=== PATIENT | female | born 1955 | race Caucasian/White ===

== ENCOUNTER 2025-03-28 09:30 | Day surgery (SDC) | payer MEDICARE, BC, SELFPAY ==
--- NOTE | 2025-03-17 13:23 | PM.GYNHP.1 ---
History of Present Illness History of Present Illness Narrative: Milad Ji is a 69 year old female Date of procedure:?? March 28, 2025 Preoperative diagnosis:? Stage III uterine prolapse Mild rectocele and cystocele that appear to be cuff dependent. Likely surgery will not be needed for these 2 Planned Procedure:?? Vaginal hysterectomy, uterosacral ligament vaginal vault suspension, possible Post repair cystoscopy patient lives in [place], will stay overnight, go home the next morning. Postop Meds Tylenol 1000 mg, ?3 times a day? Motrin 400 mg (over age 65 yr) , 3 times a day Oycodone 5 mg,? take 1 pill every 4-6 hr as needed, # 15? Colace,? 1 pill BID, for constipation CC: Cervix falling out HPI: 69-year-old female who presents for evaluation of above complaint.?? She reports onset of symptoms years ago.?? She considers this a? Moderate? problem. She has 2 issues 1. Prolapse She reports prolapse of her uterus with her cervix falling out, often to the introitus, sometimes coming beyond the introitus. She has symptoms of bulge and pressure, it interferes with sex. She is considering surgery versus another pessary. She has been using a size 3 Ring pessary for the last 1-2 years. But she stopped because it keeps falling out. No urinary symptoms. No bowel symptoms. He reports that 35 years ago she had her ?bladder anchored up ?. 2. Vulvar lichen sclerosus and vaginal atrophy She has vulvar and vaginal skin issues that also impair her quality of life. She has been using clobetasol to the vulvar skin, and Estrace cream to the vaginal epithelium. She needs refills for both of these. 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 So needs a larger tube. The skin discomfort also impairs sexual function so we talked about using lidocaine ointment. She would like to try this. prior hyst -no -x2 c-sec -0 Pelvic Floor Review of Systems: (HPI) Stress Urinary Incontinence symptoms (CUBA): No Triggers include:? Urge Incontinence symptoms (Urge UI): Occasional Triggers include: Full bladder with urge ? Pads: She wears 1 mini pad a day Overactive Bladder symptoms (OAB):? ? Frequency:?? Every 3-4 hour Nocturia:?? Times 1-2 Urgency:?? Mild Prior incontinence treatment includes:? Medical:? No Surgical:? No? Kegels:?? Yes Physical therapy:?No? Pessary: No, not for incontinence, yes for prolapse Diet / Fluids: Fluid restriction:? No Excessive fluids:?No Pain symptoms:? Painful bladder:???No Dysuria:??? No Dyspareunia:? Yes Dysmenorrhea:? No Urinary Risk Factors UTI?s, recurrent:? No Hematuria:? No Kidney Stones:?No? Tobacco use:? No Pelvic Organ Prolapse (POP) symptoms:?? Bulge:?Yes Pressure and /or? Heaviness:?No Splint for defecation or voiding:???No Voiding dysfunction: Abnormal stream:? No Strain to void:? No Incomplete emptying:?No Voiding difficulty:? No Retention:??? No Bowel Function: Constipation:?No Strain to defecate:?No Fiber:?No Laxatives:?No Fecal Incontinence:? Liquid stool:? No Solid stool:?No?? Sexual function Sexually active:? No, wants to be Incontinence with sex:? No ? UroGyn ROS ROS Narrative ROS Narrative: General Review of Systems: Constitutional, CV, Endo, Musc-skel, Eyes, Cancer, Skin, Breast, GI, Heme/Lymph, Psych, Urinary, Neuro, Wound Care Technician, Resp, Sexual:??? Pertinent positives listed above in HPI All others reviewed and negative. All reviewed on patient questionnaire.? . . PFSH Allergies fluconazole (From Diflucan) Allergy ASPIRIN Allergy (Mild, Uncoded 02/02/25 08:15) DICLOFENAC Allergy (Mild, Uncoded 02/02/25 08:15) From BUSPAR Allergy (Mild, Uncoded 02/02/25 08:15) Medications CALCIPOTRIENE (DOVONEX) 0.005 TP PRN ##0 04/22/12 [History Confirmed 02/02/25] atenolol 25 mg tablet 25 mg PO QDAY ##0 04/22/12 [History Confirmed 02/02/25] alprazolam 0.5 mg tablet,extended release 24 hr (Xanax XR) 0.5 mg PO DAILY 02/02/25 [History Confirmed 02/02/25] clobetasol 0.05 % topical ointment 1 applic topical DAILY Vulvar lichen sclerosus, oral lichen planus #60 grams 02/02/25 [Rx Confirmed 02/02/25] estradiol 0.01% (0.1 mg/gram) vaginal cream (Estrace) 1 g vaginal 3XW #42.5 grams 02/02/25 [Rx Confirmed 02/02/25] lidocaine 5 % topical ointment 1 applic topical BID PRN pain #50 grams 02/02/25 [Rx Confirmed 02/02/25] Medical History Rectocele Hypertension anxiety Surgical History Anesthesia Status post revision of total knee (~2015) History of knee replacement (~2010) Exam Height 5 ft 1 in Weight 168 lb 5 oz BMI 31.8 BP 165/103 H Blood Pressure Location Lt radial Position Sitting Pulse 61 Pulse Source Monitor Temp 97 F L Temp Source Temporal Artery Scan Pulse Oximetry (%) 96 Oxygen Delivery Method room air General: healthy, alert, coherent, no acute distress, cooperative, nontoxic Pulmonary: normal breathing, no distress Abdomen: soft, no mass, non-distended, no hernia, non-tender Skin: Scars on Abd: scope Vulva: There is severe lichen sclerosus with pale skin and small areas of focal redness. Indicating severe inflammation The labia minora are fused over the clitoris. But the vagina and urethra are not covered Otherwise, Normal labia majora, introitus, tender Urethra meatus: normal, no discharge Perineum: Normal, non-tender Urethra: No mass, non-tender Bladder: no mass, non-tender Vagina: No lesions, no discharge, mild vaginal atrophy, non-tender Prolapse stage III cervix, also with stage II anterior and posterior prolapse. However these appear to be cuff dependent Levators: Non-tender, Cervix: Normal appearance, No lesions, no discharge, non-tender Uterus: Normal normal size, non-tender Bimanual: no mass, no adnexal mass, non-tender Anus: No lesion, non-tender, no hemorrhoid Empty Cough Stress test: Neg PVR: Not done, concern for pain Urethral angle hypermobile: Yes POP-Q Exam: Aa: -1 Ba: -1 Ap: -1 Bp: -1 C: +2 D: -5 TVL: 8 GH: 3 PB: To Introitus size: 2 fingerbreadths Cystocele stage: 2-a Rectocele stage: 2-a Uterine/Vault Prolapse Stage: 3 Assessment & Plan (1) Uterovaginal prolapse, incomplete: Status: Acute (2) Vaginal atrophy: Status: Acute (3) Lichen sclerosus et atrophicus of the vulva: Status: Acute (4) Rectocele: Assessment and Plan ? Patient counseled regarding above conditions.? Educational materials given to patient. 1. Pelvic Organ Prolapse - Stage 3, uterus, rectocele This diagnosis and its etiology was discussed with the patient.? Treatment options were discussed including: expectant management, pessary trial, and surgical intervention. We briefly discussed risks and benefits of surgery. All surgery for prolapse is not 100% successful and there is a chance of recurrence or failure. already tried and failed Pessary she desires surgery my recommendation = TVH, USVS, ? post repair, cystoscopy see below for counseling 2. For the vaginal atrophy and the vulvar atrophy, ordered Vaginal estrogen to be used 3 times a week, 1 g, use indefinitely Clobetasol cream applied a vulvar skin once or twice a day as needed, also applied to the mouth as needed, for the lichen planus. Okay to use indefinitely Lidocaine ointment, 5%, use to help with sexual function or vulvar pain, as needed. Okay to use indefinitely Surgical Counselling Note Patient seen for surgical counselling.? She desires surgical repair. Please see? H & P for exam and discussion. Date of procedure:?? March 28, 2025 Preoperative diagnosis:? Stage III uterine prolapse Mild rectocele and cystocele that appear to be cuff dependent. Likely surgery will not be needed for these 2 Planned Procedure:?? Vaginal hysterectomy, uterosacral ligament vaginal vault suspension, possible Post repair cystoscopy patient lives in [place], will stay overnight, go home the next morning. Postop Meds Tylenol 1000 mg, ?3 times a day? Motrin 400 mg (over age 65 yr) , 3 times a day Oycodone 5 mg,? take 1 pill every 4-6 hr as needed, # 15? Colace,? 1 pill BID, for constipation Patient counseled extensively about the Risks, Benefits, and Alternatives to surgery.? She was offered the opportunity to ask any questions, and all questions were answered. ? Surgical Risks include: Bleeding, Hemorrhage, Transfusion, Infection (especially wound or bladder), Injury to adjacent organs (especially bladder, ureter, bowel, blood vessels, nerves), Postop or Chronic Pain, need for Reoperation, and Life-threatening event (especially M.I., CVA, PE, DVT). Procedure Risks include: Failure to Cure condition, Recurrence of condition months or years later, Urinary incontinence, Voiding dysfunction or Urinary Retention with prolonged catheter use, Poor wound healing, Erosions of any mesh or graft used, Dyspareunia, Vaginal scarring or narrowing, Need for additional surgery (immediate or delayed).? The expected cure and improvement and failure rates were discussed. Patient counseled to avoid the following for 6 weeks after surgery: (1) Impact sports (like running or jumping), walking and stairs OK (2) Lifting over 20# (3) Sexual intercourse No limits after 6 weeks. ? Good exercise tolerance, > 4 Mets. Her current medications were reviewed, and instructions given over which to use and which to discontinue before surgery.? Post-operative care instructions reviewed.? We discussed post-operative pain: Pain should be in the mild-moderate range, but can be moderate-severe for the first few days.?? Prescriptions will typically be given for (1) acetaminophen (Tylenol) and (2) non-steroidal anti-inflammatory drug (NSAID, like Motrin or Naprosyn), use both together, around the clock. Prescription will also be given for a (3) narcotic pain medication. Use the narcotic as needed, as a booster to the Tylenol and NSAID. You might need 0-4 narcotic pills a day typically. The narcotic will only be needed for a few days.?? Gradually use less of the narcotic, but continue the Tylenol and NSAID.? After a few days, the narcotic should no longer be needed, and only the Tylenol and NSAID will be needed.? Warm packs or cold packs can also be used for pain.??Do not drive for as long as you are using the narcotic pain medication? - this should only be a few days.?? Constipation is associated with use of narcotic pain medications, and can be improved with use of a stool softener, or fiber, or a mild laxative.? If you are sent home from the hospital with a Peterson Catheter in place:? please call the office on the day after surgery We will usually remove the catheter 2-4 days after surgery: a. You will perform an at home Peterson catheter removal -or- b. You will come in to the office for a voiding trial, (For some unusual surgeries, we might leave the catheter in for up to 2 weeks, and then remove it.) Instructions for at home Peterson catheter removal..... For at-home Peterson catheter removal, this can be done on postop day 2 or 3 or 4, depending on various factors. 1. At 6 or 7 a.m., have the patient cut the Peterson catheter with scissors, while standing in a shower or bath tub. a. Cut the catheter right in the middle of the tubing, about 6 inches from the body. b. The sterile water that is inside the Peterson balloon will leak all over the floor of the shower or bath tub. This is expected. c. The catheter will either fall out of the urethra, or just gently pull on it and it will come out. 2. Now, the bladder will gradually fill up over the next few hours. 3. Go ahead and empty the bladder when you feel an urge to void. Please note how strong the urine stream is. a. If the urine stream is normal or close to normal, then everything is good to go. b. If the urine stream is slow or you can not void, then return to the clinic in the afternoon. We will place another Peterson catheter. We will repeat the voiding trial in 3-4 days. All of her questions were answered Marshal Paz MD UroGynecology & Pelvic Reconstructive Surgery [facility] Medical History (Updated 03/07/25 @ 13:21 by Jazmin Hung MD) Rectocele Hypertension Surgical History (Updated 10/18/20 @ 22:05 by Lizzy Oropeza) Anesthesia Status post revision of total knee (~2015) History of knee replacement (~2010) Meds Home Medications and Allergies Home Medications ?Medication ?Instructions ?Recorded ?Confirmed ?Type CALCIPOTRIENE (DOVONEX) 0.005 TP PRN ##0 04/22/12 02/02/25 History atenolol 25 mg tablet 25 mg PO QDAY ##0 04/22/12 02/02/25 History alprazolam 0.5 mg tablet,extended 0.5 mg PO DAILY 02/02/25 02/02/25 History release 24 hr (Xanax XR) clobetasol 0.05 % topical ointment 1 applic topical DAILY Vulvar 02/02/25 02/02/25 Rx lichen sclerosus, oral lichen planus #60 grams estradiol 0.01% (0.1 mg/gram) 1 g vaginal 3XW #42.5 grams 02/02/25 02/02/25 Rx vaginal cream (Estrace) lidocaine 5 % topical ointment 1 applic topical BID PRN pain #50 02/02/25 02/02/25 Rx grams oxycodone 5 mg tablet 5 mg PO Q8H PRN pain #10 tabs 03/15/25 03/15/25 Rx Allergies Allergy/AdvReac Type Severity Reaction Status Date / Time fluconazole (From Diflucan) Allergy Unknown Verified 02/02/25 08:15 ASPIRIN Allergy Mild Uncoded 02/02/25 08:15 DICLOFENAC Allergy Mild Uncoded 02/02/25 08:15 From BUSPAR Allergy Mild Uncoded 02/02/25 08:15 Assessment & Plan Time-Based Coding :: [TOTAL MINUTES] spent with patient and on the chart (including review of chart, obtaining history, exam, reviewing outside data, placing orders, documenting exam and treatment plan, and counseling patient) on [DATE].
[2025-03-22 13:34] VITALS: BMI 31.7
[2025-03-28] VITALS (15 sets, daily range): BP systolic 100–161; BP diastolic 53–93; PULSE 64–80; RESP 15–90; TEMP 35.9–37.2; O2SAT 6–97; BMI 31.7
--- NOTE | 2025-03-28 | PATH_ITS ---
[facility] Accession Number: [id number] No. of containers..01 Tissue . 01 Material submitted: . uterus - UTERUS AND CERVIX . 01 Diagnosis: UTERUS AND CERVIX, VAGINAL HYSTERECTOMY (WEIGHT 68 GRAMS): Cervix with patchy atypia and parakeratosis suggestive of prolapse; negative for definite dysplasia. Endocervix with no significant abnormality. Endometrium with features of cystic atrophy and a benign endometrial polyp (12 mm); negative for endometrioid intraepithelial neoplasia or malignancy. Myometrium with a benign submucosal leiomyoma (5 mm). Uterine serosa with a benign, calcified subserosal leiomyoma (22 mm in greatest dimension). [facility] 04/07/2025 1527 Local . 01 Electronically signed: . Melany Vallecillo MD, Pathologist NPI- [id number] . 01 Gross description: . Received in formalin with two identifiers and uterus and cervix is an intact uterus (68 grams, 10.2 cm superior to inferior, 4.4 cm medial to lateral, 3.3 cm anterior to posterior) with attached cervix (3.4 x 3.2 cm), with no additional adnexa. . The ectocervix is carolina and wrinkled with a circular os, 0.4 cm in diameter. The serosa is slightly ragged with a well-circumscribed firm nodule measuring 2.2 x 2.4 x 1.9 cm. The serosal reflection is ragged and irregular, so orientation is approximate. The presumed anterior margin is inked blue while the presumed posterior margin is inked black. . The endocervical canal has carolina herringbone mucosa and measures 2.3 cm in length. The endometrial cavity measures 1.9 cm from cornu to cornu and 4.1 cm in length with pink-carolina, velvety endometrium that averages 0.1 cm thick. A pink-carolina soft polypoid nodule measures 1.2 x 0.7 x 0.5 cm along with a white rubbery submucosal nodule, 0.5 x 0.4 x 0.3 cm. The myometrium is carolina and trabecular measuring up to 1.3 cm thick with the aforementioned subserosal nodule and no additional lesions identified. The subserosal nodule has a carolina, gritty cut surface consistent with calcification. . Link Trainer Maintenance Worker sections are submitted as follows: A1: Anterior cervix. A2: Posterior cervix. A3: Anterior full thickness section. A4: Posterior full thickness section and submucosal nodule. A5: Calcified nodule following brief decalcification. ([id number]) /MRV 03/30/2025 171 Local . 01 Pathologist provided ICD-10: N81.2, N81.6 . 01 CPT . 606882 Specimen Comment: A courtesy copy of this report has been sent to [facility] Pathology Performed at: [address] [address], [place], [place] [id number] MD Anthony Shelton MD Phone: [phone]
--- NOTE | 2025-03-28 06:00 | EKG_ITS ---
[address] [address] Test Date: 2025-03-28 Pat Name: Milad Ji Department: [facility] Room: Gender: Female Teacher Of The Visually Impaired: KELVIN : 1955 Requested By: Order Number: [id number] Reading MD: Zeeshan Padron MD Measurements Intervals [place] Rate: 79 P: 9 NC: 180 QRS: 9 QRSD: 80 T: 24 QT: 360 QTc: 412 Interpretive Statements Normal sinus rhythm Nonspecific T wave abnormality Electronically Signed On 03-28-2025 15:07:29 PDT by Zeeshan Padron MD
[2025-03-28] MEDS: LACTATED RINGERS 1,000 ML 42 ML IV ×3 (09:57→15:52)
[2025-03-28] MEDS: GABAPENTIN 300 MG CAPSULE PO ×2 (09:57→10:00)
[2025-03-28] MEDS: PHENAZOPYRIDINE 100 MG TABLET 200 MG PO (09:59)
[2025-03-28] MEDS: ACETAMINOPHEN 325 MG TABLET 975 MG PO ×3 (10:00→22:37)
[2025-03-28 10:13] LABS: Hematocrit 46.8 % (36-46); Hemoglobin 16.1 g/dL (12.0-16.0); Mean Corpuscular HGB Conc 34.3 % (30-36); Mean Corpuscular Hemoglobin 31.2 PG (26-34); Mean Corpuscular Volume 91.0 fL (80-100); Platelet Count 161 X10^3/uL (150-400)
[2025-03-28 10:25] LABS: Blood Urea Nitrogen 13 mg/dL (7-17); Calcium 9.2 mg/dL (8.4-10.2); Carbon Dioxide 25 mmol/L (22-32); Chloride 101 mmol/L (98-107); Estimated Glomerular Filt Rate > 60 mL/min (>60); Glucose 98 mg/dL (70-99); HEMOLYSIS < 15 (0-50); Potassium 4.8 mmol/L (3.4-5.1); Sodium 136 mmol/L (137-145)
--- NOTE | 2025-03-28 11:45 | PM.PREOP ---
Pre-operative Note Interval Note History & Physical reviewed/Exam performed by Physician: Yes Changes to H&P: No
--- NOTE | 2025-03-28 12:33 | SUR.OPER ---
Lithotomy on padded OR bed, head on pillow, arms secured on padded arm boards at <90 degrees abduction. Legs secured in padded yellow fins stirrups. Safety strap across abdomen.
[2025-03-28] MEDS: LIDOCAINE 1% W/EPI 10ML 20 ML INJ (12:39)
--- NOTE | 2025-03-28 14:16 | P.OP_ITS ---
Operative Date/Time/Diagnoses Date of procedure: 03/28/25 Time of procedure: 12:45 Pre-op diagnosis: uterine prolapse Post-op diagnosis: other (uterine prolapse, mild cystocele) Procedure & Clinicians Procedure: Procedures Operation Date: 03/28/25 11:15 Actual Procedure Side Surgeon p Total Vaginal Hysterectomy, ureterosacral vault suspension, vaginal revision (CPT 55221) Not Applicable Marshal Paz MD Operative Notes Findings: Operative Note Surgeon:? Marshal Paz MD Pig Farmer:?? Beth Pérez MD Pre-Op Diagnosis:?? Uterine prolapse, possible cystocele or rectocele Post-Op Diagnosis:?? Uterine prolapse, mild cystocele, pelvic adhesions Procedure:?? Vaginal hysterectomy, uterosacral ligament vaginal vault suspension, Vaginal biopsy with suture CPT 74571 cystoscopy Findings (brief): ? 1.? EUA with uterine prolapse as noted on preop exam. no significant rectocele. redundant anterior vaginal mucosa / mild cystocele. 2. Normal size uterus, tubes, ovaries. Uterus with a 2-3 cm myoma at fundus. ? TVH in usual fashion.?? 3. pelvic adhesions of sigmoid to both pelvic sidewalls, lysis of adhesions done to dissect sigmoid off both pelvic sidewalls, to facilitate the USLVS ? 4.? USLVS with 2 sutures of 0-PDS on each side.? Excellent apical support when done.? 5. Cystoscopy with normal bladder, urethra, ureters,? no injury., with bilateral ureteral jets noted.? 6. mild cystocele, did not need a true anterior colporrhaphy, just needed excision and repair of about 25 x 10 mm of redundant anterior vaginal mucosa (basically a callous / scar that formed on the anterior vagina from the prolapse, from being sat on.) Date of Surgery:? March 28, 2025 Complications:? none Specimens:? Uterus and cervix Anesthesia Technique:?? General endotracheal Estimated Blood Loss (mls):? none Blood Replacement (mls):? 50 Drains:? Serrano Condition:? Stable Procedure in detail: After consent was confirmed, the patient was taken to the operating room and placed under general anesthesia without incident.? Sequential compression devices were in place and active.? She received perioperative antibiotics.? She was then prepped and draped in the usual sterile fashion after placement in the dorsal lithotomy position using the Bari stirrups.? A Serrano catheter was placed.? A weighted speculum was placed in the vagina and the cervix was grasped with a tenaculum. The cervix was circumferentially injected with 10-20 cc of 0.5% lidocaine / epinephrine 1:200,000.? A circumferential incision was made with electrocautery through the vaginal mucosa and carried down to the underlying cervical stroma. The posterior peritoneum was entered sharply and a retractor was placed.? Curved Sabrina clamps and 0-vicryl sutures were used.? The uterosacral ligaments were clamped, cut, and ligated bilaterally, and then tagged for use later in the case.? The anterior peritoneum entered sharply, and a serrano catheter was placed. The cardinal ligaments were clamped, cut, and ligated bilaterally.? The uterine vessels were clamped, cut, and ligated bilaterally. The broad ligaments were clamped, cut, and ligated bilaterally.? T he utero-ovarian ligaments were clamped, cut, and ligated bilaterally, and the cervix and uterus were removed.? Inspection of all pedicles was completed and hemostatis was assured.? The fallopian tubes and ovaries appeared grossly normal an were left in situ. ? A large laparotomy surgical sponge was placed into the pelvis and a [place] retractor was used to elevate the sponge and bowel to expose the pelvic sidewalls and utero-sacral ligaments.? There were pelvic adhesions of sigmoid to both pelvic sidewalls, so sharp lysis of adhesions done to dissect sigmoid off both pelvic sidewalls, to facilitate the USLVS. Tension was placed on the previously tagged left Utero-Sacral ligament, and 2 sutures of 0-PDS were placed through the U-S ligament, just above the ischial spine, and tagged for use later.? The same procedure was done on the right U-S ligament.? Cystoscopy was performed to confirm ureteral patency with a 70 degree lens. The bladder and ureters were normal and bilateral ureteral efflux with pyridium was seen, first without and then with traction on the U-S ligament suspension sutures, confirming ureteral patency.? The large sponge was removed.? The 2 Left U-S ligament suspension sutures were passed through the left side of the vaginal apex, approximately at the left apical sidewall at the tagged left utero-sacral ligament, then about 1 -2 cm medial. The same procedure was done on the Right side. The vaginal cuff was closed with 2 running, locked sutures of 0-vicryl. The U-S ligament suspension sutures were tied, elevating the vaginal apex several centimeters deep into the pelvis. Attention was then turned to the anterior vaginal wall. There was a mild cystocele, did not need a true anterior colporrhaphy, just needed excision and repair of about 25 x 10 mm of redundant anterior vaginal mucosa (basically a callous / scar that formed on the anterior vagina from the prolapse, from being sat on.) The anterior vaginal mucosa was grasped with Allis clamps and was injected with 5-8 cc of 0.5% lidocaine / epinephrine 1:200,000.? A 25 mm midline incision was made with a scalpel, in the midportion of the anterior vagina. The excessive / redundant vaginal mucosa was dissected and excised. The vaginal mucosa was closed with a running suture of 2-0 vicryl. Sponge, needle and instrument count was correct.? The patient tolerated the procedure well and was taken to the recovery room in stable condition. Marshal Paz MD UroGynecology & Pelvic Reconstructive Surgery [place], [place] Applied: catheter (serrano)
[2025-03-28] MEDS: hydrOXYzine 50 MG/ML INJ 25 MG IM (14:21)
[2025-03-28] MEDS: MORPHINE 4 MG/ML INJ IV (15:08)
--- NOTE | 2025-03-28 16:08 | PC.NURSE ---
Patient brought up from PACU to room 205, patient oriented to room and call light. Patient states she is having 9 out of 10 pelvic pain cramping, aching and burning. Patient repositioned, has ice pack in place, arrived with heat pack across lower abdomen (removed). Medicated with morphine as ordered for severe pain, patient resting in bed. Patient then reports pain is coming back in waves, reports 10/10 pressure in her chest, but localizes in to her upper abdomen and states it could possibly be gas but it is causing her anxiety. Dr. Paz paged and reached, he is updated on patients complaints of pain and medications that have been given to patient, he reports he will see her shortly. No new orders received. Patient sat up at bedside and then positioned to lay on her right side and she states she is more comfortable and able to rest at this time. continue to monitor.
[2025-03-28] MEDS: GABAPENTIN 600 MG TABLET PO (20:21)
[2025-03-28] MEDS: KETOROLAC 30 MG/ML VIAL 15 MG IV (20:21)
[2025-03-28] MEDS: DOCUSATE 100 MG CAPSULE PO (20:21)
[2025-03-29] MEDS: KETOROLAC 30 MG/ML VIAL 15 MG IV ×2 (02:36→08:30)
[2025-03-29] MEDS: ACETAMINOPHEN 325 MG TABLET 975 MG PO (05:37)
--- NOTE | 2025-03-29 07:06 | PC.NURSE ---
Voiding trial: voiding trial started at 0640 and instilled 200 cc (patient was cramping and felt uncomfortable for the full 300) and patient voided immediately 180 ccs
[2025-03-29 07:42] VITALS: BP 126/79; PULSE 55; RESP 16; TEMP 35.6; O2SAT 95
[2025-03-29] MEDS: GABAPENTIN 600 MG TABLET PO (08:30)
[2025-03-29] MEDS: DOCUSATE 100 MG CAPSULE PO (08:31)
--- NOTE | 2025-03-29 10:15 | CM.DANOTE ---
Initial DCP Assessment Visit Note Reviewed EMR and team rounds for pt's medical status and updates. Met with pt/spouse at bedside to introduce self and role. Pt was found to be alert/oriented, dressed, and preparing for d/c. Her spouse will be transporting her. No further CM d/c needs are identified at this time. Payor: Medicare PCP: Not identified Pt is a 69 year-old F post-op day 1 from a hysterectomy due to uterovaginal prolapse. She has a hx of her cervix and uterus protruding out, and has complained of bulge and pressure for some time. She did well postoperatively, pain is well controlled, and she's been medically cleared for home d/c. She will f/u postoperatively with Dr. Paz. Discharge Planning/Care Management CM Discharge Assessment Start: 03/28/25 14:59 Freq: Status: Active Protocol: Document 03/29/25 10:14 DPL (Rec: 03/29/25 10:15 DPL [id number]) Discharge Planning Assessment Assigned Discharge MARK Farias Inspector Exhaust Emissions Insurance Medicare Advance Directives? Yes Advance Directives No on File History Provided By Patient,Family Member,Medical Record Prior Living House Arrangements Household Members spouse Type of Drives own vehicle transporation used prior to admit Independent with ADL Yes 's Is patient alert and Yes oriented? Caregiver for No Another Comment N/A Comment No identified d/c needs at this time. Barriers to No Discharge Discharge Plan Home Referrals Initiated None needed Whiteboard Updated Yes in Patient Room with name and ext. # of Insole Bottom Filler Review Status In Process Please Provide Date 03/29/25 Initial DC Assessment Was Performed Pre-Anesthesia Assessment Start: 03/22/25 13:34 Freq: Status: Active Protocol: Document 03/22/25 13:34 CAB (Rec: 03/22/25 13:50 CAB [id number]) Pre-Anesthesia Assessment PAC Comment Chart review 03/22/25 Patient Information Chart Review Reviewed Via [facility] Armando Bruno Provider Seen Specialist in Yes Last 12 Months Specialist Seen Sail Cutter,Urologist Primary Language Armenian Cinder Man Required No Height 154.94 cm Weight 76.204 kg Body Mass Index (BMI 31.7 ) Barriers to Learning None Hx Anesthesia No Reactions Anesthesia Review No 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 Hx Sleep Apnea No Currently Taking a No Beta Masha Anti-Coagulant No Therapy Cardiac Testing No Hx Pacemaker/ICD No Pacemaker Rep No Required? Cardiac Clearance No Received Urinary Catheter No Present Hx Urinary Self No Catheterization Diabetes No Patient No Lactating No Presence of external Yes: Knee prosthesis or internal medical devices? Marital Status Lives With spouse Patient Discharge Return Home Plan Description Comment Lives on [facility]
== END 2025-03-29 10:40 | disposition home or self-care (01) ==
LOC: OR 14:31 → AC 14:57 → OR 15:17 → AC 15:38 → OR 03-29 11:33 → AC 03-29 11:35
PROVIDERS: Student in an Organized Health Care Education/Training Program; PCP Student in an Organized Health Care Education/Training Program; Referring Provider Student in an Organized Health Care Education/Training Program; Visit Provider Obstetrics & Gynecology Gynecology
PROC: (CPT 58260; principal; 2025-03-28 11:15)
DX: N81.2 Incomplete uterovaginal prolapse (principal); N73.6 Female pelvic peritoneal adhesions (postinfective); N89.8 Other specified noninflammatory disorders of vagina; N84.0 Polyp of corpus uteri; D25.0 Submucous leiomyoma of uterus; D25.2 Subserosal leiomyoma of uterus
CPT/HCPCS: 58260; 57283; 57105; 36415; 80048; 85027; 93005; 93010; G0378; J0690; J1100; J1885; J2250; J2270; J2405; J2704; J3010; J3410

== ENCOUNTER → 2025-05-10 11:12 | Outpatient (CLI) | payer MEDICARE, BC, SELFPAY ==
[2025-03-28 14:59] VITALS: BMI 31.7
[2025-05-10 14:32] LABS: Appearance Urine UA CLEAR; Bilirubin Urine UA NEGATIVE (NEGATIVE); Color Urine UA YELLOW; Glucose Urine UA NEGATIVE (Negative); Ketones Urine UA NEGATIVE (NEGATIVE); Leukocyte Esterase Urine UA NEGATIVE (NEGATIVE); Nitrite Urine UA NEGATIVE (Negative); Occult Blood Urine UA NEGATIVE (Negative); Protein Urine UA 1+ (Negative); Specific Gravity Urine UA 1.010 (1.000-1.035); Urobilinogen Urine UA 0.2 E.U./dL (0.2)
[2025-05-10 14:38] LABS: pH Urine UA 6.0 (4.5-8.0)
[2025-05-10 14:41] LABS: Culture Indicated Urine Cult Not Indicated
== END ==
PROVIDERS: PCP Student in an Organized Health Care Education/Training Program; Visit Provider Obstetrics & Gynecology Gynecology
DX: N39.41 Urge incontinence (principal); N32.81 Overactive bladder; N95.2 Postmenopausal atrophic vaginitis
CPT/HCPCS: 81001